=== PATIENT | male | born 1980 | race Caucasian/White ===

== ENCOUNTER 2024-02-08 22:05 | Emergency (ER) | payer BC ==
[~2024-02-08] VITALS: Ht 172.7 cm; Wt 97.7 kg
[2024-02-08] MEDS ORDERED: fentaNYL 100 MCG/2 ML VIAL IV ONE (22:30)
[2024-02-08 22:44] LABS: BASO # 0.03 K/mm3 (0.02-0.10); EOS # 0.63 K/mm3 (0.04-0.40); EOS % 6.7 % (0.0-4.0); HEMATOCRIT 43.7 % (42.0-52.0); LYMPH# 2.63 K/mm3 (1.50-4.00); MEAN CELL VOLUME 86 fl (78-100); MEAN CORPUSCULAR HEMOGLOBIN 30 pg (27-31); MEAN CORPUSCULAR HGB CONC 34 g/dL (33-37); MEAN PLATELET VOLUME 9.2 fl (7.4-10.4); MONO # 0.67 K/mm3 (0.20-0.80); NEU # 5.38 K/mm3 (1.40-6.50); PLATELET COUNT 339 K/mm3 (130-400); RED BLOOD COUNT 5.08 M/mm3 (4.20-5.60); RED CELL DISTRIBUTION WIDTH 12.2 % (11.5-14.5); WHITE BLOOD COUNT 9.4 K/mm3 (4.8-10.8)
[2024-02-08 22:51] LABS: ALBUMIN 4.4 g/dL (3.5-5.0)
[2024-02-08 22:52] LABS: CALCIUM 9.5 mg/dL (8.3-10.5)
[2024-02-08 22:53] LABS: TOTAL PROTEIN 7.2 g/dL (6.4-8.3)
[2024-02-08 22:55] LABS: TOTAL BILIRUBIN 0.5 mg/dL (0.2-1.2)
[2024-02-08] MEDS ORDERED: Iohexol 300 - 100 ML VIAL IV ONE (23:31)
[2024-02-09] LABS: PH-URINE 5.5 (5.0 - 8.0); URINE APPEARANCE CLEAR (CLEAR); URINE BILIRUBIN NEGATIVE (NEGATIVE); URINE BLOOD NEGATIVE (NEGATIVE); URINE COLOR YELLOW (YELLOW); URINE GLUCOSE NEGATIVE (NEGATIVE); URINE KETONE NEGATIVE (NEGATIVE); URINE LEUKOCYTE ESTERASE NEGATIVE (NEGATIVE); URINE NITRATE NEGATIVE (NEGATIVE); URINE PROTEIN(semi-quant) NEGATIVE (NEGATIVE); URINE WBC 0 /hpf (0-3)
[2024-02-09 00:02] LABS: URINE MUCUS PRESENT (NOT PRESENT)
[2024-02-09 00:23] VITALS: BP 130/100
== END 2024-02-09 00:27 | disposition home or self-care (01) ==
LOC: ED 22:05
PROVIDERS: Nurse Practitioner Family
DX: S22.31XA Fracture of one rib, right side, initial encounter for closed fracture (principal); W01.0XXA Fall on same level from slipping, tripping and stumbling without subsequent striking against object, initial encounter; Y93.89 Activity, other specified; Y92.814 Boat as the place of occurrence of the external cause
CPT/HCPCS: J3010; Q9967

== ENCOUNTER → 2024-06-27 | Outpatient (CLI) | payer BC | LOC: RAD 09:26 | DX: M54.50 Low back pain, unspecified (principal) ==

== ENCOUNTER 2024-07-07 07:54 | Outpatient (RCR) | payer BC | END 2024-07-08 | LOC: PT | DX: M54.50 Low back pain, unspecified (principal) ==